=== PATIENT | female | born 1950 | race American Indian/Alaskan Native ===

== ENCOUNTER 2017-06-20 12:02 | Emergency (ER) | payer MEDICARE ==
[2017-06-20 12:43] LABS: Hematocrit 42.3 % (30.3-42.9); Hemoglobin 13.3 gm/dl (10.1-14.3); Mean Corpuscular HGB Conc 32 % (30-34); Mean Corpuscular Hemoglobin 27 pg (28-32); Mean Corpuscular Volume 85 fl (79-97); Platelet Count 249 K/mm3 (140-440); Red Cell Distribution Width 14.1 % (13.2-15.2); White Blood Count 9.4 K/mm3 (4.5-11.0)
[2017-06-20 12:59] LABS: Anion Gap 17 mmol/L; BUN/Creatinine Ratio 13; Blood Urea Nitrogen 8 mg/dL (7-17); Calcium 9.2 mg/dL (8.4-10.2); Carbon Dioxide 28 mmol/L (22-30); Chloride 103.4 mmol/L (98-107); Glucose 92 mg/dL (65-100); Potassium 4.3 mmol/L (3.6-5.0); Sodium 144 mmol/L (137-145)
--- NOTE | 2017-06-20 13:36 | XRay Report ---
ROUTINE CHEST, TWO VIEWS: HISTORY: Cough. Borderline to mild cardiomegaly is unchanged since 06/06/17. The trachea, mediastinal contour, lung renee and bony thorax are unremarkable. IMPRESSION: No acute cardiopulmonary process is appreciated.
--- NOTE | 2017-06-20 17:41 | Emergency Department Report ---
HPI - General Chief Complaint: Laceration/Recheck/Suture Time Seen by Provider: 06/20/17 17:23 - HPI HPI: Muniz 19 The patient is a 67-year-old female presenting with a chief complaint of abdominal pain. Patient had a laparoscopic repair of epigastric hernia performed by Dr. Dunbar 06/07/2017. The patient states she never made her follow-up appointment secondary to lack of transportation. The patient states since the surgery she has had pain in her right lower quadrant ventral region and right back. Patient admits to nausea but denies vomiting. Patient denies any history of fever or diarrhea. Patient states she's had a cough for the past 1.5 weeks. Patient denies any other pain elsewhere. The patient gives her pain a score of 8/10 Location: Abdomen Duration: Constant since 06/07/2017 Quality: Pain Severity: 8/10 Modifying factors: [see above] Context: [see above] Mode of transportation: [not driving] ED Past Medical Hx - Past Medical History Hx Hypertension: Yes Hx Diabetes: Yes - Surgical History Additional Surgical History: Laparoscopic herniorrhaphy - Family History Family history: no significant - Social History Smoking Status: Never Smoker Substance Use Type: Alcohol (rarely) - Medications Home Medications: Home Medications Medication Instructions Recorded Confirmed Last Taken Type Amlodipine Besylate [Norvasc] 10 mg PO QDAY 06/06/17 06/06/17 Unknown History Aspirin [Adult Low Dose Aspirin EC] 81 mg PO DAILY 06/06/17 06/06/17 Unknown History Hydrochlorothiazide [HCTZ] 25 mg PO QDAY 06/06/17 06/06/17 Unknown History Lisinopril [Prinivil] 10 mg PO QDAY 06/06/17 06/06/17 Unknown History Metoprolol Xl [Metoprolol 100 mg PO QDAY 06/06/17 06/06/17 Unknown History SUCCINATE ER TAB] Simvastatin [Zocor] 20 mg PO QDAY 06/06/17 06/06/17 Unknown History metFORMIN [Glucophage] 500 mg PO QDAY 06/06/17 06/06/17 Unknown History HYDROcodone/ACETAMINOPHEN [Vicodin 1 tab PO Q6HR PRN #20 tablet 06/07/17 Unknown Rx HP 10-300 mg TAB] HYDROcodone/APAP 5-325 [Bruneau 1 each PO Q6HR PRN #24 tablet 06/07/17 Unknown Rx 5/325] HYDROcodone/APAP 5-325 [[place] 1 each PO Q6HR PRN #24 tablet 06/07/17 Unknown Rx 5/325] HYDROcodone/APAP 5-325 [[place] 1 each PO Q6HR PRN #24 tablet 06/07/17 Unknown Rx 5/325] HYDROcodone/APAP 5-325 [[place] 1 each PO Q6HR PRN #24 tablet 06/07/17 Unknown Rx 5/325] HYDROcodone/APAP 5-325 [[place] 1 each PO Q6HR PRN #24 tablet 06/07/17 Unknown Rx 5/325] Benzonatate [Tessalon Perle] 100 mg PO TID PRN #30 capsule 06/20/17 Unknown Rx HYDROcodone/APAP 5-325 [[place] 1 - 2 each PO Q6HR PRN #14 tablet 06/20/17 Unknown Rx 5/325] ED Review of Systems ROS: Stated complaint: REMOVAL OF SUTURE Other details as noted in HPI Constitutional: denies: fever Eyes: denies: eye pain Respiratory: cough Cardiovascular: denies: chest pain Gastrointestinal: abdominal pain, nausea. denies: vomiting, diarrhea Genitourinary: denies: dysuria Musculoskeletal: back pain Neurological: denies: headache Physical Exam - Physical Exam Vital Signs: Vital Signs 06/20/17 06/20/17 06/20/17 12:22 16:26 16:27 Temperature 98.1 F Pulse Rate 89 97 H Respiratory 18 18 Rate Blood Pressure 187/93 170/107 O2 Sat by Pulse 96 96 Oximetry Physical Exam: GENERAL: The patient is well-developed well-nourished female lying on stretcher not appearing to be in acute distress. [] HEENT: Normocephalic. Atraumatic. Extraocular motions are intact. Patient has moist mucous membranes. NECK: Supple. Trachea midline CHEST/LUNGS: Clear to auscultation. There is no respiratory distress noted. HEART/CARDIOVASCULAR: Regular. There is no tachycardia. There is no gallop rub or murmur. ABDOMEN: Abdomen is soft, with appropriate postop tenderness. Left scalp surgical sites are clean dry and intact without evidence of discharge or erythema. Patient has normal bowel sounds. There is no abdominal distention. SKIN: There is no rash. There is no edema. There is no diaphoresis. NEURO: The patient is awake, alert, and oriented. The patient is cooperative. The patient has normal speech MUSCULOSKELETAL: There is no evidence of acute injury. ED Course Vital Signs 06/20/17 06/20/17 06/20/17 12:22 16:26 16:27 Temperature 98.1 F Pulse Rate 89 97 H Respiratory 18 18 Rate Blood Pressure 187/93 170/107 O2 Sat by Pulse 96 96 Oximetry - Consultations Consultation #1: 06/20/17 17:46 Dr. Dunbar paged 06/20/17 17:[address] Dunbar ED Medical Decision Making - Lab Data Result diagrams: 06/20/17 12:28 06/20/17 12:28 Laboratory Tests 06/20/17 06/20/17 06/20/17 12:28 12:28 18:15 WBC 9.4 RBC 5.00 Hgb 13.3 Hct 42.3 MCV 85 MCH 27 L MCHC 32 RDW 14.1 Plt Count 249 Sodium 144 Potassium 4.3 Chloride 103.4 Carbon Dioxide 28 Anion Gap 17 BUN 8 Creatinine 0.6 L Estimated GFR > 60 BUN/Creatinine Ratio 13 Glucose 92 Calcium 9.2 Urine Color Straw Urine Turbidity Clear Urine pH 8.0 H Ur Specific [place] 1.006 Urine Protein <15 mg/dl Urine Glucose (UA) Neg Urine Ketones Neg Urine Blood Neg Urine Nitrite Neg Urine Bilirubin Neg Urine Urobilinogen < 2.0 Ur Leukocyte Esterase Lg Urine WBC (Auto) 6.0 Urine RBC (Auto) 3.0 U Epithel Cells (Auto) < 1.0 - Radiology Data Radiology results: report reviewed (CT abdomen and pelvis), image reviewed ( chest x-ray, CT abdomen and pelvis) interpreted by me: Chest x-ray-no focal infiltrates, no pneumothorax FINAL REPORT EXAM: CT ABDOMEN PELVIS W CON HISTORY: lower abd pain, right flank pain TECHNIQUE: CT of the abdomen and pelvis was performed after the administration of intravenous contrast. Subsequently, CT of the abdomen and pelvis was performed in the delayed phase. Reconstructions were included in the coronal and sagittal planes. PRIORS: None. FINDINGS: Lower thorax: The lung bases are clear. Coronary artery calcifications are seen. Liver: The liver is normal in attenuation. No intrahepatic biliary duct dilation. No focal hepatic lesions. Gallbladder/ biliary system: No cholelithiasis. The common bile duct appears nondilated. Spleen: No splenic lesions are seen. Pancreas: No pancreatic lesions are seen. No pancreatic duct dilation. Kidneys: No renal masses, cysts or hydronephrosis. Adrenal glands: No adrenal masses. Vasculature: The abdominal and pelvic vasculature is patent without variant anatomy. Atherosclerotic calcifications are seen in the abdominal aorta. Lymph nodes: No enlarged lymph nodes are seen in the abdomen or pelvis. Bowel, mesentery, peritoneum: No bowel obstruction. No free fluid or free air. The appendix is normal. Colonic diverticulosis is seen. No diverticulitis. No bowel wall thickening. Urinary bladder: No filling defects are seen. Pelvis: 1.8 centimeter cyst is seen in the right adnexa, likely representing an ovarian cyst. The uterus and left ovary appear unremarkable. Abdominal wall: Evidence of prior anterior abdominal wall hernia repair is noted. Small fat containing umbilical hernia is seen. Bones: Mild degenerative changes are seen in the spine. IMPRESSION: 1. No acute intra-abdominal or intrapelvic process. 2. Small cyst in the right adnexa most likely represents a small ovarian cyst. Recommend further evaluation with pelvic ultrasound. 3. Colonic diverticulosis without evidence of diverticulitis. Transcribed By: MG Dictated By: REYNOLD REEVES MD Electronically Authenticated By: REYNOLD REEVES MD Signed Date/Time: 06/20/171454 DD/ 54 TD/TT: 06/20/171454 - Differential Diagnosis postop infection, postop pain Critical care attestation.: If time is entered above; I have spent that time in minutes in the direct care of this critically ill patient, excluding procedure time. ED Disposition Clinical Impression: Postoperative abdominal pain, Cough Disposition: - TO HOME OR SELFCARE Is pt being admited?: No Does the pt Need Aspirin: No Condition: Stable Additional Instructions: Return to the emergency department immediately should you develop worsening symptoms, fever, inability to tolerate food or liquid or any other concerns. Prescriptions: Benzonatate [Tessalon Perle] 100 mg PO TID PRN #30 capsule PRN Reason: Cough HYDROcodone/APAP 5-325 [[place] 5/325] 1 - 2 each PO Q6HR PRN #14 tablet PRN Reason: Pain Referrals: PRIMARY CARE, [Primary Care Provider] - 3-5 Days EMILI DUNBAR MD [Staff Physician] - [facility] Time of Disposition: 19:12
[2017-06-20] MEDS ORDERED: ZOFRAN IV ONE (17:43)
[2017-06-20] MEDS ORDERED: MORPHINE IV ONE (17:43)
[2017-06-20] MEDS ORDERED: MORPHINE ONE (18:01)
[2017-06-20 18:56] LABS: Bilirubin,Urine NEG (Negative); Blood,Urine NEG (Negative); Ketones,Urine NEG (Negative); Leukocyte Esterase,Urine LG (Negative); Nitrite,Urine NEG (Negative); Protein,Urine <15 mg/dL mg/dL (Negative); Urobilinogen,Urine < 2.0 mg/dL (<2.0)
--- NOTE | 2017-06-20 18:59 | Cat Scan Report ---
FINAL REPORT EXAM: CT ABDOMEN PELVIS W CON HISTORY: lower abd pain, right flank pain TECHNIQUE: CT of the abdomen and pelvis was performed after the administration of intravenous contrast. Subsequently, CT of the abdomen and pelvis was performed in the delayed phase. Reconstructions were included in the coronal and sagittal planes. PRIORS: None. FINDINGS: Lower thorax: The lung bases are clear. Coronary artery calcifications are seen. Liver: The liver is normal in attenuation. No intrahepatic biliary duct dilation. No focal hepatic lesions. Gallbladder/ biliary system: No cholelithiasis. The common bile duct appears nondilated. Spleen: No splenic lesions are seen. Pancreas: No pancreatic lesions are seen. No pancreatic duct dilation. Kidneys: No renal masses, cysts or hydronephrosis. Adrenal glands: No adrenal masses. Vasculature: The abdominal and pelvic vasculature is patent without variant anatomy. Atherosclerotic calcifications are seen in the abdominal aorta. Lymph nodes: No enlarged lymph nodes are seen in the abdomen or pelvis. Bowel, mesentery, peritoneum: No bowel obstruction. No free fluid or free air. The appendix is normal. Colonic diverticulosis is seen. No diverticulitis. No bowel wall thickening. Urinary bladder: No filling defects are seen. Pelvis: 1.8 centimeter cyst is seen in the right adnexa, likely representing an ovarian cyst. The uterus and left ovary appear unremarkable. Abdominal wall: Evidence of prior anterior abdominal wall hernia repair is noted. Small fat containing umbilical hernia is seen. Bones: Mild degenerative changes are seen in the spine. IMPRESSION: 1. No acute intra-abdominal or intrapelvic process. 2. Small cyst in the right adnexa most likely represents a small ovarian cyst. Recommend further evaluation with pelvic ultrasound. 3. Colonic diverticulosis without evidence of diverticulitis.
[2017-06-20 20:06] VITALS: BP 163/98
[2017-06-20] MEDS ORDERED: TYLENOL PO ONE (20:09)
[2017-06-20] MEDS ORDERED: TYLENOL ONE (20:12)
== END 2017-06-20 20:33 | disposition home or self-care (01) ==
LOC: ED 12:02
DX: G89.18 Other acute postprocedural pain (principal); R10.31 Right lower quadrant pain; R05 Cough; I10 Essential (primary) hypertension; E11.9 Type 2 diabetes mellitus without complications; Z79.82 Long term (current) use of aspirin
CPT/HCPCS: 36415; 71020; 74177; 80048; 81001; 85027; 96374; 96375; 99285; J2270; J2405; Q9967

== ENCOUNTER 2018-09-10 06:07 | Day surgery (SDC) | payer MEDICARE ==
[2018-09-10] MEDS ORDERED: ECOTRIN PO NR (06:20)
[2018-09-10] MEDS ORDERED: NACL 0.9% 500 ML 500 ML IV SCH (07:00)
[2018-09-10 07:10] LABS: Basophils % (Auto) 0.3 % (0.0-1.8); Eosinophils # (Auto) 0.8 K/mm3 (0.0-0.4); Eosinophils % (Auto) 9.4 % (0.0-4.3); Hematocrit 43.8 % (30.3-42.9); Hemoglobin 14.4 gm/dl (10.1-14.3); Lymphocytes # (Auto) 2.2 K/mm3 (1.2-5.4); Lymphocytes % (Auto) 24.8 % (13.4-35.0); Mean Corpuscular HGB Conc 33 % (30-34); Mean Corpuscular Volume 83 fl (79-97); Monocytes # (Auto) 0.7 K/mm3 (0.0-0.8); Monocytes % (Auto) 8.3 % (0.0-7.3); Platelet Count 237 K/mm3 (140-440); Red Blood Count 5.29 M/mm3 (3.65-5.03)
[2018-09-10 07:21] LABS: INR 1.06 (0.87-1.13)
[2018-09-10 07:22] LABS: BUN/Creatinine Ratio 15; Blood Urea Nitrogen 9 mg/dL (7-17); Calcium 9.3 mg/dL (8.4-10.2); Hemolysis Index 120; Partial Thromboplastin Time 25.2 Sec. (24.2-36.6)
[2018-09-10] MEDS ORDERED: HEPARIN/NS 5000 UNIT/500ML(CATH LAB) 1,000 ML IR ONE (09:18)
[2018-09-10] MEDS: NITROGLYCERIN SYRINGE 3 ML ONE ×2 (09:22→10:07)
[2018-09-10] MEDS: VERSED ONE ×2 (09:50→09:58)
[2018-09-10] MEDS: SUBLIMAZE ONE ×2 (09:51→09:58)
[2018-09-10] MEDS: XYLOCAINE 2% INFILTRATI ONE ×2 (09:51→10:05)
[2018-09-10] MEDS: CALAN ONE ×2 (09:51→10:07)
[2018-09-10] MEDS: HEPARIN 10,000 UNITS/10 ML ONE ×2 (09:52→10:07)
--- NOTE | 2018-09-10 10:32 | Discharge Summary ---
Short Stay Discharge Plan Activity: advance as tolerated Weight Bearing Status: Full Weight Bearing Diet: low fat, low cholesterol, low salt Wound: keep clean and dry Special Instructions: no heavy lifting (3 days), hold Metformin (48 hrs) Follow up with: ISAIAH COTE MD [Primary Care Provider] - 7 Days KESHAV MADERA MD [Staff Physician] - 7 Days
--- NOTE | 2018-09-10 10:45 | Cardiac Catherization Report ---
CARDIAC CATHETERIZATION REPORT REASON FOR PROCEDURE: Cardiomyopathy and abnormal thallium stress test. PROCEDURES: 1. Left heart catheterization. 2. Selective left and right coronary angiography. 3. Left ventricle angiography. 4. Sedation time: Start 09:58, end 10:20. DESCRIPTION OF PROCEDURE: The patient was prepped and draped in a sterile fashion after informed consent. The right radial cath site was prepped and draped after a negative Ariel's test. The right radial artery was entered using Seldinger technique followed by placement of a 6-Occitan hydrophilic sheath. Routine radial cocktail was administered via the sheath. Selective left and right coronary angiography was performed using a #3.5 left Clarisa and a #4 right Clarisa. A pigtail catheter was used for left ventricle angiography. Catheters were then removed, sheath removed, and hemostasis achieved using a TR band. The patient was returned to the postprocedure unit in stable condition. There were no complications. FINDINGS: HEMODYNAMICS: Left ventricle end-diastolic pressure was 25, following coronary angiography. Ascending aortic pressure was 141/78. There was no significant pressure gradient on pullback across the aortic valve. CORONARY ANGIOGRAPHY: There was diffuse, moderate to severe ectasia involving the left main, left anterior descending, circumflex arteries and their branches. This severe ectasia was associated with diffuse mild atherosclerotic disease. There was also mild diffuse coronary calcification, chiefly involving the mid segments of the left anterior descending artery. No severe obstructive lesions were noted in the left coronary system. The right coronary artery was dominant. This vessel also contained diffuse moderate ectasia associated with diffuse mild atherosclerosis. The left ventricle was moderately to severely dilated. There was severe left ventricular systolic dysfunction with diffuse hypokinesis. Left ventricular ejection fraction less than 20%. CONCLUSION: 1. 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 2. Dilated, nonischemic cardiomyopathy, severe left ventricular systolic dysfunction, ejection fraction less than 20%. RECOMMENDATION: Medical therapy and risk factor modification. [facility]# [id number] [place]/NTS
[2018-09-10] MEDS ORDERED: NACL 0.9% 1000 ML 1,000 ML IV SCH (11:00)
[2018-09-10 14:08] VITALS: BP 140/90
== END 2018-09-10 15:30 | disposition home or self-care (01) ==
LOC: CATHLABREC 06:07
PROVIDERS: ATTEND Internal Medicine Cardiovascular Disease
DX: I25.10 Atherosclerotic heart disease of native coronary artery without angina pectoris (principal); I42.0 Dilated cardiomyopathy; R94.39 Abnormal result of other cardiovascular function study; I77.819 Aortic ectasia, unspecified site; I44.7 Left bundle-branch block, unspecified; E78.00 Pure hypercholesterolemia, unspecified; I10 Essential (primary) hypertension; Z79.82 Long term (current) use of aspirin; Z79.01 Long term (current) use of anticoagulants; Z98.890 Other specified postprocedural states
CPT/HCPCS: 36415; 80048; 85025; 85610; 85730; 93005; 93010; 93458; 99156; C1894; J1644; J2250; J3010; J7040; Q9967

== ENCOUNTER 2018-09-16 09:58 | Emergency (ER) | payer MEDICARE ==
[2018-09-16 10:08] VITALS: BP 174/102
--- NOTE | 2018-09-16 11:08 | Emergency Department Report ---
ED General Adult HPI - General Chief complaint: Extremity Injury, Upper Stated complaint: ARM PAIN Time Seen by Provider: 09/16/18 10:50 Source: patient Mode of arrival: Ambulatory Limitations: No Limitations - History of Present Illness Initial comments: Patient is a 68-year-old female who is presenting with some right wrist discomfort. Patient had a cardiac cath last week, approximately 6 days ago. Patient states that to 3 days ago she started having some mild bruising and achiness in this area. Patient states on her paperwork is stated that she should be seen if she has any discoloration. Patient denies any discharge comfort with moving her wrist, fevers chills nausea vomiting or diarrhea. Severity scale (0 -10): 7 - Related Data Home Medications Medication Instructions Recorded Confirmed Last Taken Aspirin [Aspirin EC] 81 mg PO QDAY 09/10/18 09/10/18 09/09/18 Previous Rx's Medication Instructions Recorded Last Taken Type amLODIPine [Norvasc] 10 mg PO QDAY #30 tablet 04/01/18 09/09/18 Rx Allergies Allergy/AdvReac Type Severity Reaction Status Date / Time No Known Allergies Allergy Verified 09/16/18 10:05 ED Review of Systems ROS: Stated complaint: ARM PAIN Other details as noted in HPI Comment: All other systems reviewed and negative ED Past Medical Hx - Past Medical History Hx Hypertension: Yes Hx Diabetes: Yes Hx Headaches / Migraines: Yes (for the last 3 days) - Surgical History Additional Surgical History: Laparoscopic herniorrhaphy - Social History Smoking Status: Never Smoker Substance Use Type: None - Medications Home Medications: Home Medications Medication Instructions Recorded Confirmed Last Taken Type amLODIPine [Norvasc] 10 mg PO QDAY #30 tablet 04/01/18 09/10/18 09/09/18 Rx Aspirin [Aspirin EC] 81 mg PO QDAY 09/10/18 09/10/18 09/09/18 History ED Physical Exam - General Limitations: No Limitations General appearance: alert, in no apparent distress - Head Head exam: Present: atraumatic, normocephalic - Eye Eye exam: Present: normal appearance - ENT ENT exam: Present: mucous membranes moist - Neck Neck exam: Present: normal inspection - Respiratory Respiratory exam: Present: normal lung sounds bilaterally. Absent: respiratory distress, wheezes, rales, rhonchi - Cardiovascular Cardiovascular Exam: Present: regular rate, normal rhythm. Absent: systolic murmur, diastolic murmur, rubs, gallop - GI/Abdominal GI/Abdominal exam: Present: soft, normal bowel sounds. Absent: distended, tenderness, guarding, rebound - Extremities Exam Extremities exam: Present: normal inspection, other (the volar surface of the right wrist shows a small area of bruising. There is no induration or fluctuance of the skin. There is no warmth. Very minimal tenderness palpation. Patient has full range of motion to the right wrist.) - Back Exam Back exam: Present: normal inspection - Neurological Exam Neurological exam: Present: alert, oriented X3 - Psychiatric Psychiatric exam: Present: normal affect, normal mood - Skin Skin exam: Present: warm, dry, intact, normal color. Absent: rash ED Course Vital Signs 09/16/18 10:05 Temperature 98.3 F Pulse Rate 110 H Respiratory 18 Rate Blood Pressure 174/102 O2 Sat by Pulse 98 Oximetry ED Medical Decision Making - Medical Decision Making Patient likely had a small amount of blood underneath the surface of the scan after the venipuncture. Patient does not appear to have a large hematoma and skin there is just some surface bruising. Patient's discharge home to follow with her dry plasterer. Critical care attestation.: If time is entered above; I have spent that time in minutes in the direct care of this critically ill patient, excluding procedure time. ED Disposition Clinical Impression: Wrist contusion Qualifiers: Encounter type: initial encounter Laterality: right Qualified Code(s): S60.211A - Contusion of right wrist, initial encounter Disposition: -01 TO HOME OR SELFCARE Is pt being admited?: No Does the pt Need Aspirin: No Condition: Stable Instructions: Contusion in Adults (ED) Time of Disposition: 11:08
== END 2018-09-16 11:41 | disposition home or self-care (01) ==
LOC: ED 09:58
DX: S60.211A Contusion of right wrist, initial encounter (principal); I10 Essential (primary) hypertension; E11.9 Type 2 diabetes mellitus without complications; G43.909 Migraine, unspecified, not intractable, without status migrainosus; Z79.82 Long term (current) use of aspirin; X58.XXXA Exposure to other specified factors, initial encounter; Y93.89 Activity, other specified; Y92.89 Other specified places as the place of occurrence of the external cause; Y99.8 Other external cause status
CPT/HCPCS: 99282

== ENCOUNTER 2018-10-21 11:47 | Inpatient (IN) | payer MEDICARE ==
--- NOTE | 2018-10-21 12:36 | Emergency Department Report ---
ED General Adult HPI - General Chief complaint: Dyspnea/Respdistress Stated complaint: FABIÁN Time Seen by Provider: 10/21/18 12:32 Source: patient, EMS (ems notes not available at time of chart dictation), RN notes reviewed, old records reviewed Mode of arrival: Ambulatory Limitations: No Limitations - History of Present Illness Initial comments: Primary care Dr.: Dr. 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 The patient is not known to this provider previously. The patient is sent to the emergency room by her clutch inspector for "fluid on my lungs." The patient today complains of cough, wheezing, shortness of breath, inability to expectorate, unintentional 45 pound weight gain, generalized malaise and fatigue. Symptoms present for the past 2 weeks. They're getting worse. She sleeps on 2 pillows constantly. She denies DVT, pulmonary embolus risk factors. She reports 3 days of constant chest wall pain, which has started after coughing. Her symptoms worsen physical exertion, laying down, and decreased with rest. They do not radiate anywhere. The chest wall pain is constant. It does not radiate anywhere. -: Gradual, days(s) Location: chest Radiation: non-radiation Consistency: constant Improves with: other Worsens with: other - Related Data Home Medications Medication Instructions Recorded Confirmed Last Taken Aspirin [Aspirin EC] 81 mg PO QDAY 09/10/18 10/21/18 10/20/18 metFORMIN [Glucophage] 500 mg PO QDAY 10/21/18 10/21/18 10/20/18 Previous Rx's Medication Instructions Recorded Last Taken Type amLODIPine [Norvasc] 10 mg PO QDAY #30 tablet 04/01/18 10/20/18 Rx Allergies Allergy/AdvReac Type Severity Reaction Status Date / Time No Known Allergies Allergy Verified 09/16/18 10:05 ED Review of Systems ROS: Stated complaint: FABIÁN Other details as noted in HPI Constitutional: malaise, weakness. denies: fever ENT: congestion Respiratory: cough, shortness of breath, SOB with exertion, SOB at rest, wheezing Cardiovascular: chest pain, dyspnea on exertion. denies: orthopnea, edema Gastrointestinal: denies: abdominal pain, nausea, vomiting Genitourinary: denies: dysuria Musculoskeletal: denies: arthralgia, myalgia Skin: denies: lesions Neurological: weakness Psychiatric: denies: anxiety ED Past Medical Hx - Past Medical History Previous Medical History?: Yes Hx Hypertension: Yes Hx CVA: No Hx Heart Attack/AMI: No Hx Congestive Heart Failure: Yes Hx Diabetes: Yes Hx Deep Vein Thrombosis: No Hx Pulmonary Embolism: No Hx GERD: No Hx Liver Disease: No Hx Renal Disease: No Hx of Cancer: No Hx Sickle Cell Disease: No Hx Arthritis: No Hx Headaches / Migraines: Yes (for the last 3 days) Hx Seizures: No Hx Kidney Stones: No Hx Psychiatric Treatment: No Hx Asthma: No Hx COPD: No Hx Tuberculosis: No Hx Dementia: No Hx HIV: No - Surgical History Past Surgical History?: Yes Hx Coronary Stent: No Hx Open Heart Surgery: No Hx Pacemaker: No Hx Internal Defibrillator: No Hx Cholecystectomy: No Hx Appendectomy: No Hx Breast Surgery: No Additional Surgical History: Laparoscopic herniorrhaphy - Social History Smoking Status: Never Smoker Substance Use Type: None - Medications Home Medications: Home Medications Medication Instructions Recorded Confirmed Last Taken Type amLODIPine [Norvasc] 10 mg PO QDAY #30 tablet 04/01/18 10/21/18 10/20/18 Rx Aspirin [Aspirin EC] 81 mg PO QDAY 09/10/18 10/21/18 10/20/18 History metFORMIN [Glucophage] 500 mg PO QDAY 10/21/18 10/21/18 10/20/18 History ED Physical Exam - General Limitations: No Limitations General appearance: alert, in no apparent distress - Head Head exam: Present: atraumatic, normocephalic - Eye Eye exam: Present: normal appearance, EOMI. Absent: nystagmus - ENT ENT exam: Present: normal exam, normal orophraynx, mucous membranes moist, normal external ear exam - Neck Neck exam: Present: normal inspection, full ROM. Absent: tenderness, meningismus - Respiratory Respiratory exam: Present: respiratory distress, wheezes, rales, rhonchi - Cardiovascular Cardiovascular Exam: Present: regular rate, normal rhythm, normal heart sounds. Absent: tachycardia, irregular rhythm, systolic murmur, diastolic murmur, rubs, gallop - GI/Abdominal GI/Abdominal exam: Present: soft. Absent: distended, tenderness, guarding, rebound, rigid, pulsatile mass - Extremities Exam Extremities exam: Present: normal inspection, full ROM, other (2+ pulses noted in the bilateral upper, lower extremities. Compartments soft. No long bony tenderness. The pelvis is stable.). Absent: pedal edema, joint swelling, calf tenderness - Back Exam Back exam: Present: normal inspection, full ROM. Absent: paraspinal tenderness, vertebral tenderness - Neurological Exam Neurological exam: Present: alert, oriented X3, CN II-XII intact, normal gait, other (Extraocular movements intact. Tongue midline. No facial droop. Facial sensation intact to light touch in the V1, V2, V3 distribution bilaterally. 5 and 5 strength in 4 extremities.. Sensation is intact to light touch in 4 extremities.). Absent: motor sensory deficit - Psychiatric Psychiatric exam: Present: normal affect, normal mood - Skin Skin exam: Present: warm, dry, intact, normal color. Absent: rash ED Course Vital Signs 10/21/18 10/21/18 11:58 14:26 Temperature 98.2 F Pulse Rate 80 Respiratory 18 18 Rate Blood Pressure 157/100 O2 Sat by Pulse 96 99 Oximetry - Reevaluation(s) Reevaluation #1: 10/21/18 13:54 Differential diagnosis, including but not limited to: COPD exacerbation, bronchitis, CHF exacerbation, pulmonary hypertension, costochondritis, pneumonia, acute coronary syndrome Assessment and plan: 68-year-old female with known history of catheterization proven resumed nonischemic dilated cardiomyopathy, with cough, wheezing, shortness of breath, unintentional weight loss, and chest wall pain. Suspect fluid overload, possible superimposed bronchitis, COPD. Reports no pulmonary embolus or DVT risk factors, and I find the patient to be low risk by well's criteria. Cardiology has been paged. EKG, troponin pending. We will admit the patient to the medical service. Patient will be treated with bronchodilators, steroids, and diuretics. 10/21/18 13:55 Reevaluation #2: 10/21/18 14:38 Dr. Serna has accepted the patient to the medical service. Reevaluation #3: 10/21/18 15:23 X-ray of the chest interpreted as negative for acute disease. Reevaluation #4: 10/21/18 15:44 Discussed with clutch inspector visualization developer, Dr. Lolis Caban , who agrees with plan, and he will follow-up consultation. ED Medical Decision Making - Lab Data Result diagrams: 10/21/18 12:52 10/21/18 12:52 Vital Signs 10/21/18 11:58 Temperature 98.2 F Pulse Rate 80 Respiratory 18 Rate Blood Pressure 157/100 O2 Sat by Pulse 96 Oximetry Lab Results 10/21/18 10/21/18 10/21/18 Range/Units 12:52 12:52 12:52 WBC 8.8 (4.5-11.0) K/mm3 RBC 5.47 H (3.65-5.03) M/mm3 Hgb 15.0 H (10.1-14.3) gm/dl Hct 45.2 H (30.3-42.9) % MCV 83 (79-97) fl MCH 28 (28-32) pg MCHC 33 (30-34) % RDW 14.5 (13.2-15.2) % Plt Count 283 (140-440) K/mm3 PT 13.9 (12.2-14.9) Sec. INR 1.01 (0.87-1.13) Sodium 141 (137-145) mmol/L Potassium 4.1 (3.6-5.0) mmol/L Chloride 99.9 (98-107) mmol/L Carbon Dioxide 29 (22-30) mmol/L Anion Gap 16 mmol/L BUN 10 (7-17) mg/dL Creatinine 0.7 (0.7-1.2) mg/dL Estimated GFR > 60 ml/min BUN/Creatinine Ratio 14 % Glucose 111 H (65-100) mg/dL Calcium 9.9 (8.4-10.2) mg/dL Magnesium 2.00 (1.7-2.3) mg/dL Troponin T < 0.010 (0.00-0.029) ng/mL NT-Pro-B Natriuret Pep 551.5 (0-900) pg/mL - EKG Data -: EKG Interpreted by Me - EKG Data 10/21/18 15:46 EKG shows a sinus rhythm, 96 bpm, left axis deviation, left bundle branch block, left anterior fascicular block, not having chest pain, abnormal EKG, unchanged from prior, this EKG is not morphologically consistent with ST elevation myocardial infarction. - Radiology Data Radiology results: pending Critical care attestation.: If time is entered above; I have spent that time in minutes in the direct care of this critically ill patient, excluding procedure time. ED Disposition Clinical Impression: SOB (shortness of breath), Cardiomyopathy, Chest pain, Bronchitis Disposition: OP ADMIT IP TO THIS HOSP Is pt being admited?: Yes Does the pt Need Aspirin: Yes Condition: Stable
[2018-10-21] MEDS ORDERED: SOLU-Medrol IV ONE (13:01)
[2018-10-21] MEDS ORDERED: PROVENTIL IH ONE (13:01)
[2018-10-21] MEDS ORDERED: ATROVENT IH ONE (13:01)
[2018-10-21 13:10] LABS: Hematocrit 45.2 % (30.3-42.9); Mean Corpuscular HGB Conc 33 % (30-34); Mean Corpuscular Volume 83 fl (79-97); Platelet Count 283 K/mm3 (140-440); Red Blood Count 5.47 M/mm3 (3.65-5.03); Red Cell Distribution Width 14.5 % (13.2-15.2)
[2018-10-21 13:19] LABS: INR 1.01 (0.87-1.13)
[2018-10-21 13:39] LABS: BUN/Creatinine Ratio 14; Blood Urea Nitrogen 10 mg/dL (7-17); Calcium 9.9 mg/dL (8.4-10.2); Hemolysis Index 4
[2018-10-21] MEDS ORDERED: LASIX IV ONE (13:49)
[2018-10-21] MEDS ORDERED: TYLENOL PO ONE (13:55)
[2018-10-21] MEDS ORDERED: BABY ASPIRIN PO ONE (13:56)
--- NOTE | 2018-10-21 14:30 | History and Physical Report ---
History of Present Illness Chief complaint: i cant breathe doc History of present illness: 68 YO Female with HTN, DM, Obesity, Systolic CHF(EF 20%), COPD presents to ED for evaluation. Pt states that she has experienced shortness of breath over the past 3 days with progressively worsening symptoms over the same time frame. Pt acknowledges shortness of breath, increased productive cough of whitish sputum, dypsnea on exertion, decreased exercise tolerance, leg edema, and 45 lbs weight gain over the past 2 months, Orthopnea/PND. PT denies fever, chills, chest pain, palpitation, nasal congestion, or sore throat, NVD, Dizziness, syncope or loss of consciousness. EMS notified, and upon arrival the patient was found to be in distress and transported to [facility]. Pt seen and evaluated in ED and found to have symptoms consistent with COPD Exacebation complicated by Acute Respiratory Failure, as well as CHF Decompensation. Cardiology consulted in ED. Pt admitted to telemetry and initiated on CHF protocol. Pt treated with supplemental oxygen with improvement in symptoms. Prior admission on 03/28/18 reviewed. All listed medication reconciled at admission. Primary care Dr.: Dr. Elian Parker Cardiology: [facility] Past History Past Medical History: CAD, COPD, diabetes, heart failure, hypertension Past Surgical History: Other (cardiac cath) Social history: single, lives with family. denies: smoking, alcohol abuse, prescription drug abuse Family history: diabetes, hypertension Medications and Allergies Allergies Allergy/AdvReac Type Severity Reaction Status Date / Time No Known Allergies Allergy Verified 09/16/18 10:05 Home Medications Medication Instructions Recorded Confirmed Last Taken Type amLODIPine [Norvasc] 10 mg PO QDAY #30 tablet 04/01/18 10/21/18 10/20/18 Rx Aspirin [Aspirin EC] 81 mg PO QDAY 09/10/18 10/21/18 10/20/18 History metFORMIN [Glucophage] 500 mg PO QDAY 10/21/18 10/21/18 10/20/18 History Review of Systems Constitutional: weight gain, no weight loss, no fever, no chills, no sweats Ears, nose, mouth and throat: no ear pain, no ear discharge, no tinnitis, no decreased hearing, no nose pain, no nasal congestion Breasts: no change in shape, no swelling, no mass Cardiovascular: orthopnea, shortness of breath, dyspnea on exertion, paroxysmal nocturnal dyspnea, decreased exercise tolerance, no chest pain, no palpitations Respiratory: cough, cough with sputum, excessive sputum, shortness of breath Gastrointestinal: no nausea, no vomiting, no diarrhea, no constipation Genitourinary Female: no pelvic pain, no flank pain, no menorrhagia, no dysuria, no urinary frequency, no urgency Menstruation: no premenarcheal, no post hysterectomy, no ammenorrhea Rectal: no pain, no incontinence, no bleeding Musculoskeletal: no neck stiffness, no neck pain, no shooting arm pain, no arm numbness/tingling, no low back pain, no shooting leg pain Integumentary: no rash, no pruritis, no redness, no sores, no wounds Neurological: no transient paralysis, no paralysis, no weakness, no parathesias, no numbness, no tingling Psychiatric: no anxiety, no memory loss, no change in sleep habits, no sleep disturbances, no insomnia Endocrine: no cold intolerance, no heat intolerance, no polyphagia, no polydipsia, no polyuria, no nocturia, no excessive sweating Hematologic/Lymphatic: no easy bruising, no easy bleeding, no lymphedema Allergic/Immunologic: no urticaria, no allergic rhinitis, no wheezing Exam - Constitutional Vitals: Temp Pulse Resp BP Pulse Ox 98.2 F 80 18 157/100 99 10/21/18 11:58 10/21/18 11:58 10/21/18 14:26 10/21/18 11:58 10/21/18 14:26 General appearance: Present: mild distress - EENT Eyes: Present: PERRL ENT: hearing intact, clear oral mucosa - Neck Neck: Present: supple, normal ROM - Respiratory Respiratory effort: normal Respiratory: bilateral: diminished, rhonchi - Cardiovascular Heart Sounds: Present: S1 & S2. Absent: rub, click - Extremities Extremities: pulses symmetrical Extremity abnormal: edema Peripheral Pulses: within normal limits - Abdominal General gastrointestinal: Present: soft, non-tender, non-distended, normal bowel sounds Female genitourinary: Present: normal - Integumentary Integumentary: Present: clear, warm, dry - Musculoskeletal Musculoskeletal: gait normal, strength equal bilaterally - Psychiatric Psychiatric: appropriate mood/affect, intact judgment & insight - Neurologic Neurologic: CNII-XII intact, moves all extremities Results - Labs CBC & Chem 7: 10/21/18 12:52 10/21/18 12:52 Labs: Abnormal lab results 10/21/18 10/21/18 Range/Units 12:52 12:52 RBC 5.47 H (3.65-5.03) M/mm3 Hgb 15.0 H (10.1-14.3) gm/dl Hct 45.2 H (30.3-42.9) % Glucose 111 H (65-100) mg/dL Assessment and Plan - Patient Problems (1) CHF (congestive heart failure) Current Visit: Yes Status: Acute Qualifiers: Heart failure type: systolic Heart failure chronicity: acute on chronic Qualified Code(s): I50.23 - Acute on chronic systolic (congestive) heart failure Plan to address problem: Admit to telemetry, Cath report reviewed, strict I/O, daily weight, BNP, monitor uop q shift, chest x ray, afterload reduction, (2) COPD with exacerbation Current Visit: Yes Status: Acute Plan to address problem: Admit to telemetry, supplemental oxygen, nebulizer therapy, NIPPV as clinically indicated, IV steroid therapy, empiric antibiotic therapy, pulse oximetry, D dimer, CTA chest, Influenza A/B, Hydromet for cough suppression. (3) Respiratory failure Current Visit: Yes Status: Acute Qualifiers: Chronicity: acute Respiratory failure complication: hypoxia Qualified Code(s): J96.01 - Acute respiratory failure with hypoxia Plan to address problem: Chest x ray, pulse oximetry, CT angio chest, d dimer, supplemental oxygen, NIPPV as clinically indicated, (4) Diabetes Current Visit: Yes Status: Acute Plan to address problem: ADA diet, insulin, accu check, (5) CAD (coronary artery disease) Current Visit: Yes Status: Acute Qualifiers: Associated angina: without angina Plan to address problem: Low cholesterol diet, lipid panel, statin therapy as clinically indicated. (6) DVT prophylaxis Current Visit: Yes Status: Acute Plan to address problem: SCD to BLE while in bed. Prophylactic lovenox
[2018-10-21] MEDS ORDERED: SODIUM CHLORIDE FLUSH SYRINGE 10 ML IV PRN (14:38)
[2018-10-21] MEDS ORDERED: PROVENTIL IH PRN (14:38)
[2018-10-21] MEDS ORDERED: D50W (25GM) Syringe IV PRN (15:00)
[2018-10-21] MEDS ORDERED: ZOFRAN IV PRN (15:00)
[2018-10-21] MEDS ORDERED: TYLENOL PO PRN (15:00)
--- NOTE | 2018-10-21 15:14 | XRay Report ---
Chest 2 views: Compared to 03/28/18. History: Dyspnea. Findings: Borderline cardiomegaly. Trachea is midline. No consolidation, pneumothorax or pleural effusion. Impression: No acute cardiopulmonary findings.
[2018-10-21] MEDS: NORVASC PO SCH (16:44)
[2018-10-21] MEDS ORDERED: HYDROMET PO PRN (17:07)
[2018-10-21] MEDS ORDERED: LASIX ONE (18:59)
[2018-10-21] MEDS: HumaLOG SUB-Q SCH (19:03)
[2018-10-21] MEDS: LASIX IV SCH (19:04)
[2018-10-21] MEDS ORDERED: HumaLOG SUB-Q ONE (19:04)
--- NOTE | 2018-10-21 20:16 | Cat Scan Report ---
PROCEDURE: CT ANGIO CHEST TECHNIQUE: Computerized tomographic angiography of the chest was performed after the IV injection of iodinated nonionic contrast including image processing. The image data was postprocessed using 2-di mensional multiplanar reformatted (MPR) and 3-dimensional (MIP and/or volume rendered) techniques. Au tomated exposure control, adjustment of mA and/or kV according to patient size, or iterative reconstr uction dose optimization techniques were utilized. HISTORY: Dyspnea COMPARISONS: None . FINDINGS: There is an aberrant right subclavian artery. Prominent right thyroid lobe Heart and pericardium: Heart is at the upper limit of normal in size. No pericardial effusion or thic kening. Thoracic aorta: Tortuous thoracic aorta. Pulmonary vasculature: Normal. Lymph nodes: No enlarged thoracic lymph nodes. Lungs: Normal. Pleural space: No effusion, thickening, or pneumothorax. Musculoskeletal structures: No significant abnormality. Upper abdominal structures: No significant abnormality. IMPRESSION: No evidence of pulmonary emboli. Other findings as above . This document is electronically signed by Loly Stinson MD., October 21 2018 08:13:37 PM ET
[2018-10-21] MEDS: LOVENOX SUB-Q SCH (21:42)
[2018-10-21] MEDS: SODIUM CHLORIDE FLUSH SYRINGE 10 ML IV SCH (21:42)
[2018-10-21] MEDS: SOLU-Medrol IV SCH (21:42)
[2018-10-22] MEDS: HumaLOG SUB-Q SCH ×5 (00:41→18:11)
[2018-10-22] MEDS: LASIX IV SCH ×2 (05:38→18:08)
[2018-10-22] MEDS: SOLU-Medrol IV SCH ×2 (09:23→22:45)
[2018-10-22] MEDS: HALFPRIN EC PO SCH (09:23)
[2018-10-22] MEDS: NORVASC PO SCH (09:23)
[2018-10-22] MEDS: SODIUM CHLORIDE FLUSH SYRINGE 10 ML IV SCH ×2 (09:24→22:45)
[2018-10-22] MEDS: ZITHROMAX 500 MG in NACL 0.9% 250ML 250 ML IV SCH (09:46)
[2018-10-22] MEDS ORDERED: AFLURIA QUAD 2018-2019 SYRINGE IM ONE (12:00)
--- NOTE | 2018-10-22 14:33 | Consultation ---
History of Present Illness Consult date: 10/22/18 Consult reason: congestive heart failure History of present illness: Patient is a 68-year-old woman with a dilated nonischemic cardiomyopathy, un derwent a cardiac catheterization 6 weeks ago, no significant coronary disease, left ventricular ejection fraction less than 20%. She has been on medical therapy for her nonischemic cardiomyopathy. During an outpatient follow-up visit with her primary asphalt spreader yesterday, she was referred to the emergency room for further evaluation of shortness of breath. In the emergency room, she was reported as having diffuse rhonchi and wheezing, diagnosed with a bronchitis and COPD exacerbation. The chest x-ray revealed no interstitial edema or heart failure, and there was no lower extremity edema. EKG sent normal sinus rhythm with her chronic left bundle branch block. Today, the patient looks and feels better, no further shortness of breath, no chest pain. She is on intravenous antibiotics. Past History Past Medical History: CAD, COPD, diabetes, heart failure, hypertension Past Surgical History: Other (cardiac cath) Social history: single, lives with family. denies: smoking, alcohol abuse, pres cription drug abuse Family history: diabetes, hypertension Medications and Allergies Allergies Allergy/AdvReac Type Severity Reaction Status Date / Time No Known Allergies Allergy Verified 09/16/18 10:05 Home Medications Medication Instructions Recorded Confirmed Last Taken Type amLODIPine [Norvasc] 10 mg PO QDAY #30 tablet 04/01/18 10/21/18 10/20/18 Rx Aspirin [Aspirin EC] 81 mg PO QDAY 09/10/18 10/21/18 10/20/18 History metFORMIN [Glucophage] 500 mg PO QDAY 10/21/18 10/21/18 10/20/18 History Active Meds: Active Medications Acetaminophen (Tylenol) 650 mg PO Q4H PRN PRN Reason: Pain MILD(1-3)/Fever >100.5/DE [place] Last Admin: 10/22/18 09:26 Dose: 650 mg Documented by: Albuterol (Proventil) 2.5 mg IH Q4HRT PRN PRN Reason: Shortness Of Breath Amlodipine Besylate (Norvasc) 10 mg PO QDAY [facility] Last Admin: 10/22/18 09:23 Dose: 10 mg Documented by: Aspirin (Halfprin Ec) 81 mg PO QDAY [facility] Last Admin: 10/22/18 09:23 Dose: 81 mg Documented by: Dextrose (D50w (25gm) Syringe) 50 ml IV PRN PRN PRN Reason: Hypoglycemia Enoxaparin Sodium (Lovenox) 40 mg SUB-Q QDAY@2200 [facility] Last Admin: 10/21/18 21:42 Dose: 40 mg Documented by: Furosemide (Lasix) 20 mg IV 0600,1800 [facility] Last Admin: 10/22/18 05:38 Dose: 20 mg Documented by: Hydrocodone Bit/Homatropine Methylb (Hydromet) 10 ml PO Q6H PRN PRN Reason: Cough Azithromycin 500 mg/ Sodium (Chloride) 250 mls @ 250 mls/hr IV Q24HR [facility] Last Admin: 10/22/18 09:46 Dose: 250 mls/hr Documented by: Insulin Human Lispro (Humalog) 0 unit SUB-Q Q6HR [facility]; Protocol Last Admin: 10/22/18 13:15 Dose: Not Given Documented by: Methylprednisolone Sodium Succinate (Solu-Medrol) 40 mg IV Q12HR [facility] Last Admin: 10/22/18 09:23 Dose: 40 mg Documented by: Ondansetron HCl (Zofran) 4 mg IV Q8H PRN PRN Reason: Nausea And Vomiting Sodium Chloride (Sodium Chloride Flush Syringe 10 Ml) 10 ml IV BID [facility] Last Admin: 10/22/18 09:24 Dose: 10 ml Documented by: Sodium Chloride (Sodium Chloride Flush Syringe 10 Ml) 10 ml IV PRN PRN PRN Reason: LINE FLUSH Review of Systems Cardiovascular: shortness of breath, no chest pain, no orthopnea, no palpitations, no rapid/irregular heart beat, no edema, no syncope, no lightheadedness Physical Examination Vital Signs Temp Pulse Resp BP Pulse Ox 98.2 F 80 18 157/100 96 10/21/18 11:58 10/21/18 11:58 10/21/18 11:58 10/21/18 11:58 10/21/18 11:58 General appearance: no acute distress HEENT: Positive: PERRL Neck: Positive: neck supple Cardiac: Positive: Reg Rate and Rhythm Lungs: Positive: Decreased Breath Sounds Neuro: Positive: Grossly Intact Abdomen: Positive: Soft Female genitourinary: deferred Skin: Positive: Clear Extremities: Absent: edema Results 10/21/18 12:52 10/21/18 12:52 EKG interpretations - Telemetry EKG Rhythm: Sinus Rhythm Assessment and Plan - Patient Problems (1) Dilated cardiomyopathy Current Visit: Yes Status: Acute Plan to address problem: We'll continue guideline directed optimal treatment of dilated cardiomyopathy and chronic systolic heart failure. Cardiac status is stable for discharge on outpatient medical therapy.
--- NOTE | 2018-10-22 16:56 | Progress Note ---
Assessment and Plan Assessment and plan: - Patient Problems (1) CHF (congestive heart failure) Current Visit: Yes Status: Acute Qualifiers: Heart failure type: systolic Heart failure chronicity: acute on chronic Qualified Code(s): I50.23 - Acute on chronic systolic (congestive) heart failure Plan to address problem: Presumed diastolic Continue management as directed by cardiology with optimized medical management and anticipate possible discharge in a.m. Patient has a known ejection fraction of 20% on last underwent Catheterization about 6 weeks ago with no significant cardiovascular disease. The chest x-ray revealed no interstitial edema or heart failure, and there was no lower extremity edema. EKG sent normal sinus rhythm with her chronic left bundle branch block. Remarkable as the patient if she's ever had a heart disease she said no. I will further discuss her clinical condition with her prior to discharge. She will she is compliant with all goal-directed therapy. (2) COPD with exacerbation Current Visit: Yes Status: Acute Plan to address problem: Continue current therapy with antibiotics and nebulizer treatments. If improved will discharge him and (3) Respiratory failure Current Visit: Yes Status: Acute Qualifiers: Chronicity: acute Respiratory failure complication: hypoxia Qualified Co de(s): J96.01 - Acute respiratory failure with hypoxia Plan to address problem: No clinical evidence of pulmonary embolism noted. Respiratory failure is impro paula. (4) Diabetes Current Visit: Yes Status: Acute Plan to address problem: ADA diet, insulin, accu check, (5) CAD (coronary artery disease) Current Visit: Yes Status: Acute Qualifiers: Associated angina: without angina Plan to address problem: Low cholesterol diet, lipid panel, statin therapy as clinically indicated. (6) DVT prophylaxis Current Visit: Yes Status: Acute Plan to address problem: SCD to BLE while in bed. Prophylactic lovenox Discussed with the patient understood discharge in a.m. History Interval history: Patient seen and examined this morning continues to complain of mild shortness of breath. She does have cough which is wet but nonproductive. Denies any chest pain at this time. Denies any further fever. Hospitalist Physical - Physical exam Narrative exam: VITAL SIGNS: Reviewed. GENERAL: The patient appeared well nourished and normally developed, Vital signs as documented. HEAD: No signs of head trauma. EYES: Pupils are equal. Extraocular motions intact. EARS: Hearing grossly intact. MOUTH: Oropharynx is normal. NECK: No adenopathy, no JVD. CHEST: Chest with clear breath sounds bilaterally. No wheezes, rales, or rh onchi. CARDIAC: Regular rate and rhythm. S1 and S2, without murmurs, gallops, or rubs. VASCULAR: No Edema. Peripheral pulses normal and equal in all extremities. ABDOMEN: Soft, non tender and non distended. No rebound or guarding, and no masses palpated. Bowel Sounds normal. MUSCULOSKELETAL: Good range of motion of all major joints. Extremities without clubbing, cyanosis or edema. NEUROLOGIC EXAM: Alert and oriented x 3 No focal sensory or strength deficits. Speech normal. Follows commands. PSYCHIATRIC: Mood normal. SKIN: No rash or lesions. - Constitutional Vitals: Temp Pulse Resp BP Pulse Ox 98.4 F 112 H 24 149/80 97 10/22/18 04:51 10/22/18 09:31 10/22/18 09:31 10/22/18 09:31 10/22/18 09:31 General appearance: Present: no acute distress Results - Labs CBC & Chem 7: 10/21/18 12:52 10/21/18 12:52 Labs: Laboratory Last Values WBC 8.8 K/mm3 (4.5-11.0) 10/21/18 12:52 RBC 5.47 M/mm3 (3.65-5.03) H 10/21/18 12:52 Hgb 15.0 gm/dl (10.1-14.3) H 10/21/18 12:52 Hct 45.2 % (30.3-42.9) H 10/21/18 12:52 MCV 83 fl (79-97) 10/21/18 12:52 MCH 28 pg (28-32) 10/21/18 12:52 MCHC 33 % (30-34) 10/21/18 12:52 RDW 14.5 % (13.2-15.2) 10/21/18 12:52 Plt Count 283 K/mm3 (140-440) 10/21/18 12:52 PT 13.9 Sec. (12.2-14.9) 10/21/18 12:52 INR 1.01 (0.87-1.13) 10/21/18 12:52 D-Dimer 152.22 ng/mlDDU (0-234) 10/21/18 20:19 Sodium 141 mmol/L (137-145) 10/21/18 12:52 Potassium 4.1 mmol/L (3.6-5.0) 10/21/18 12:52 Chloride 99.9 mmol/L (98-107) 10/21/18 12:52 Carbon Dioxide 29 mmol/L (22-30) 10/21/18 12:52 Anion Gap 16 mmol/L 10/21/18 12:52 BUN 10 mg/dL (7-17) 10/21/18 12:52 Creatinine 0.7 mg/dL (0.7-1.2) 10/21/18 12:52 Estimated GFR > 60 ml/min 10/21/18 12:52 BUN/Creatinine Ratio 14 % 10/21/18 12:52 Glucose 111 mg/dL (65-100) H 10/21/18 12:52 POC Glucose 146 (70-105) H 10/23/18 06:49 Calcium 9.9 mg/dL (8.4-10.2) 10/21/18 12:52 Magnesium 1.90 mg/dL (1.7-2.3) 10/21/18 20:19 Troponin T < 0.010 ng/mL (0.00-0.029) 10/21/18 12:52 NT-Pro-B Natriuret Pep 551.5 pg/mL (0-900) 10/21/18 12:52 TSH 0.443 mlU/mL (0.270-4.200) 10/21/18 12:52 Active Medications - Current Medications Current Medications: Generic Name Dose Route Start Last Admin Trade Name Andrzejq PRN Reason Stop Dose Admin Acetaminophen 650 mg 10/21/18 15:00 10/22/18 09:26 Tylenol PO 650 mg Q4H PRN Administration Pain MILD(1-3)/Fever >100.5/DE SANTIAGO Albuterol 2.5 mg 10/21/18 14:38 Proventil IH Q4HRT PRN Shortness Of Breath Amlodipine Besylate 10 mg 10/21/18 15:00 10/22/18 09:23 Norvasc PO 10 mg QDAY CHRIS Administration Aspirin 81 mg 10/22/18 10:00 10/22/18 09:23 Halfprin Ec PO 81 mg QDAY CHRIS Administration Dextrose 50 ml 10/21/18 15:00 D50w (25gm) Syringe IV PRN PRN Hypoglycemia Enoxaparin Sodium 40 mg 10/21/18 22:00 10/21/18 21:42 Lovenox SUB-Q 40 mg QDAY@2200 CHRIS Administration Furosemide 20 mg 10/21/18 18:00 10/22/18 05:38 Lasix IV 20 mg 0600,1800 CHRIS Administration Hydrocodone Bit/Homatropine Methylb 10 ml 10/21/18 17:07 Hydromet PO Q6H PRN Cough Azithromycin 500 mg/ Sodium 250 mls @ 250 mls/hr 10/22/18 10:00 10/22/18 09:46 Chloride IV 250 mls/hr Q24HR CHRIS Administration Insulin Human Lispro 0 unit 10/21/18 18:00 10/22/18 13:15 Humalog SUB-Q Not Given Q6HR [facility] Protocol Methylprednisolone Sodium Succinate 40 mg 10/21/18 22:00 10/22/18 09:23 Solu-Medrol IV 40 mg Q12HR CHRIS Administration Ondansetron HCl 4 mg 10/21/18 15:00 Zofran IV Q8H PRN Nausea And Vomiting Sodium Chloride 10 ml 10/21/18 22:00 10/22/18 09:24 Sodium Chloride Flush Syringe 10 Ml IV 10 ml BID CHRIS Administration Sodium Chloride 10 ml 10/21/18 14:38 Sodium Chloride Flush Syringe 10 Ml IV PRN PRN LINE FLUSH
[2018-10-22] MEDS: LOVENOX SUB-Q SCH (22:45)
[2018-10-23] MEDS: LASIX IV SCH (05:37)
[2018-10-23] MEDS: HumaLOG SUB-Q SCH ×2 (06:17→13:15)
[2018-10-23] MEDS: SOLU-Medrol IV SCH (10:25)
[2018-10-23] MEDS: NORVASC PO SCH (10:25)
[2018-10-23] MEDS: HALFPRIN EC PO SCH (10:25)
[2018-10-23] MEDS: SODIUM CHLORIDE FLUSH SYRINGE 10 ML IV SCH (10:26)
--- NOTE | 2018-10-23 10:37 | Discharge Summary ---
Providers - Providers Date of Admission: 10/21/18 14:38 Attending physician: LICO SALAZAR MD 10/21/18 12:34 Consult to Physician [CONS] Urgent Comment: DR TOLEDO NOTIFIED Consulting Provider: MOLLY TOLEDO Physician Instructions: Reason For Exam: chf Primary care physician: ISAIAH COTE Hospitalization Reason for admission: shortness of breath Condition: Stable Hospital course: 68 YO Female with HTN, DM, Obesity, Systolic CHF(EF 20%), COPD presents to ED for evaluation. Pt states that she has experienced shortness of breath over the past 3 days with progressively worsening symptoms over the same time frame. Pt acknowledges shortness of breath, increased productive cough of whitish sputum, dypsnea on exertion, decreased exercise tolerance, leg edema, and 45 lbs weight gain over the past 2 months, Orthopnea/PND. PT denies fever, chills, chest pain, palpitation, nasal congestion, or sore throat, NVD, Dizziness, syncope or loss of consciousness. EMS notified, and upon arrival the patient was found to be in distress and transported to [facility]. Pt seen and evaluated in ED and found to have symptoms consistent with COPD Exacebation complicated by Acute Respiratory Failure, as well as CHF Decompensation. Cardiology consulted in ED. Pt admitted to telemetry and initiated on CHF protocol. Pt treated with supplemental oxygen with improvement in symptoms. Prior admission on 03/28/18 reviewed. All listed medication reconciled at admission. * Patient on admission was sent by cardiology who felt that that may be alternative diagnosis for her condition rub or exacerbation of CHF. On further discussion with the patient appears that she does have acute bronchitis exacerbating underlying COPD. She was treated with nebulizer and a ntibiotics. * Patient appears to have poor knowledge of her medical condition including an ejection fraction of 20% on a recent cardiac catheterization 6 weeks ago with no significant evidence of carotid vascular disease but with known left bundle branch block which is chronic. We did have extensive discussion with the patient about this and about compliance with medication which she does not appear that she's been taken any of her Alex inhibitors as prescribed during the procedure. RECOMMENDED during the procedure. She verbalizes understanding of this and prescribed counseling about side effects was also provided to the patient. - Patient Problems acute bronchitis Dilated cardiomyopathy COPD with exacerbation Respiratory failure diabetes CAD (coronary artery disease) Disposition: TO HOME OR SELFCARE Time spent for discharge: 35 mins Core Measure Documentation - Palliative Care Palliative Care/ Comfort Measures: Not Applicable - Core Measures Any of the following diagnoses?: none Exam - Physical Exam Narrative exam: VITAL SIGNS: Reviewed. GENERAL: The patient appeared well nourished and normally developed, Vital signs as documented. HEAD: No signs of head trauma. EYES: Pupils are equal. Extraocular motions intact. EARS: Hearing grossly intact. MOUTH: Oropharynx is normal. NECK: No adenopathy, no JVD. CHEST: Chest with clear breath sounds bilaterally. No wheezes, rales, or rhonchi. CARDIAC: Regular rate and rhythm. S1 and S2, without murmurs, gallops, or rubs. VASCULAR: No Edema. Peripheral pulses normal and equal in all extremities. ABDOMEN: Soft, non tender and non distended. No rebound or guarding, and no masses palpated. Bowel Sounds normal. MUSCULOSKELETAL: Good range of motion of all major joints. Extremities without clubbing, cyanosis or edema. NEUROLOGIC EXAM: Alert and oriented x 3 No focal sensory or strength deficits. Speech normal. Follows commands. PSYCHIATRIC: Mood normal. SKIN: No rash or lesions. - Constitutional Vitals: Temp Pulse Resp BP Pulse Ox 98.2 F 84 18 144/76 96 10/23/18 09:23 10/23/18 09:24 10/23/18 09:24 10/23/18 09:24 10/23/18 09:24 Plan Activity: advance as tolerated, fall precautions Diet: low fat, low salt Special Instructions: record daily BP diary, record blood sugar diary Follow up with: ISAIAH COTE MD [Primary Care Provider] - 3-5 Days MOLLY TOLEDO MD [Staff Physician] - 7 Days Prescriptions: Amoxicillin/Potassium Clav [Augmentin 500-125 Tablet] 1 each PO BID 5 Days tablet Carvedilol [Coreg] 6.25 mg PO BID #60 tablet HYDROcodone/HOMATROP 5-1.5 [HYDROcodone-Homatropin 5-1.5 mg per 5 ML] 10 ml PO Q6H PRN 10 Days udc PRN Reason: Cough Furosemide [Lasix TAB] 40 mg PO QDAY #30 tablet Prednisone [predniSONE 5 mg (6-Day Pack, 21 Tabs)] 5 mg PO .TAPER #1 tab.ds.pk Lisinopril [Prinivil] 5 mg PO DAILY #30 tablet ALBUTEROL NEB's [Proventil 0.083% NEBS] 2.5 mg IH Q4HRT PRN #30 nebu PRN Reason: Shortness Of Breath
[2018-10-23] MEDS: ZITHROMAX 500 MG in NACL 0.9% 250ML 250 ML IV SCH (14:05)
[2018-10-23 16:20] VITALS: BP 144/70
--- NOTE | 2018-10-23 17:27 | Progress Note ---
Assessment and Plan - Patient Problems (1) Dilated cardiomyopathy Current Visit: Yes Status: Acute Plan to address problem: We'll continue guideline directed optimal treatment of dilated cardiomyopathy and chronic systolic heart failure. Cardiac status is stable for discharge on outpatient medical therapy. Subjective Date of service: 10/23/18 Interval history: Patient looks and feels better, no cardiac complaints. Shortness of breath has resolved. Objective Vital Signs Temp Pulse Resp BP Pulse Ox 10/23/18 16:17 97.6 F 87 18 144/70 97 10/23/18 11:54 97.7 F 76 18 128/79 97 10/23/18 10:00 96 10/23/18 09:24 84 18 144/76 96 10/23/18 09:23 98.2 F 10/23/18 04:20 98.0 F 80 18 137/70 97 10/23/18 03:00 93 H 10/23/18 00:32 98.3 F 79 18 129/77 97 10/22/18 20:07 98.4 F 93 H 18 132/69 97 10/22/18 19:25 20 97 10/22/18 19:00 95 H 10/22/18 18:31 97.6 F 95 H 20 140/72 93 - Physical Examination General: No Apparent Distress HEENT: Positive: PERRL Neck: Positive: neck supple Cardiac: Positive: Reg Rate and Rhythm Lungs: Positive: Decreased Breath Sounds Neuro: Positive: Grossly Intact Abdomen: Positive: Soft Skin: Positive: Clear Extremities: Absent: edema
== END 2018-10-23 18:24 | disposition home or self-care (01) | DRG 291 ==
LOC: ED 11:47 → 4A 14:38
PROVIDERS: ADMIT Internal Medicine; ATTEND Internal Medicine
DX: I11.0 Hypertensive heart disease with heart failure (principal); J96.01 Acute respiratory failure with hypoxia; J44.0 Chronic obstructive pulmonary disease with (acute) lower respiratory infection; J44.1 Chronic obstructive pulmonary disease with (acute) exacerbation; I50.23 Acute on chronic systolic (congestive) heart failure; I42.0 Dilated cardiomyopathy; E11.9 Type 2 diabetes mellitus without complications; I25.10 Atherosclerotic heart disease of native coronary artery without angina pectoris; G43.909 Migraine, unspecified, not intractable, without status migrainosus; E66.9 Obesity, unspecified; Z79.84 Long term (current) use of oral hypoglycemic drugs; Z79.899 Other long term (current) drug therapy; Z79.82 Long term (current) use of aspirin; Z68.32 Body mass index [BMI] 32.0-32.9, adult; Z83.3 Family history of diabetes mellitus; Z82.49 Family history of ischemic heart disease and other diseases of the circulatory system
CPT/HCPCS: 36415; 71046; 71275; 80048; 82962; 83735; 83880; 84443; 84484; 85027; 85379; 85610; 90686; 93005; 93010; 94760; 96372; 96374; 96375; G0378; J0456; J1650; J1815; J1940; J2920; J2930; J7050; Q9967

== ENCOUNTER 2019-03-14 06:12 | Emergency (ER) | payer MEDICARE ==
[2019-03-14] MEDS ORDERED: PROVENTIL IH ONE (06:30)
[2019-03-14] MEDS ORDERED: ATROVENT IH ONE (06:30)
[2019-03-14] MEDS: ATROVENT IH ONE (06:42)
[2019-03-14] MEDS: PROVENTIL IH ONE (06:42)
[2019-03-14] MEDS: DELTASONE PO ONE (06:45)
--- NOTE | 2019-03-14 07:01 | XRay Report ---
CHEST 1 VIEW INDICATION: cough, wheezing. COMPARISON: 10/21/2018. FINDINGS: Support devices: Pacemaker unchanged. Heart: Stable cardiomegaly. The aorta remains tortuous and ectatic. Lungs/Pleura: No acute air space or interstitial disease. Additional findings: None. IMPRESSION: Stable cardiomegaly. Signer Name: Calixto Marmolejo MD Signed: 03/14/2019 6:56 AM Workstation Name: [id number]
[2019-03-14 07:14] VITALS: BP 143/83
--- NOTE | 2019-03-14 07:25 | Emergency Department Report ---
ED Shortness of Breath HPI - General Chief Complaint: Dyspnea/Respdistress Stated Complaint: FABIÁN Time Seen by Provider: 03/14/19 06:35 Source: patient, family Mode of arrival: Ambulatory Limitations: No Limitations - History of Present Illness Initial Comments: 69 yo F with hx of COPD presents to ED with wheezing since this morning. Pt states she has been having exacerbations over the last 3 weeks. Reports nonproductive cough and states wheezing is triggered by the coughing. Pt states she has been on a course of antibiotics also since this started 3 weeks ago. Denies fever. Recently had pacemaker placed and reports chest wall pain since placement. MD Complaint: shortness of breath, cough -: week(s) (3) Severity: moderate Consistency: intermittent Improves With: bronchodilators Worsens With: coughing Known History Of: COPD - Related Data Home Oxygen Therapy: No Home Medications Medication Instructions Recorded Confirmed Last Taken Aspirin [Aspirin EC] 81 mg PO QDAY 09/10/18 10/21/18 10/20/18 metFORMIN [Glucophage] 500 mg PO QDAY 10/21/18 10/21/18 10/20/18 Previous Rx's Medication Instructions Recorded Last Taken Type amLODIPine [Norvasc] 10 mg PO QDAY #30 tablet 04/01/18 10/20/18 Rx ALBUTEROL NEB's [Proventil 0.083% 2.5 mg IH Q4HRT PRN #30 nebu 10/23/18 Unknown Rx NEBS] Amoxicillin/Potassium Clav 1 each PO BID 5 Days tablet 10/23/18 Unknown Rx [Augmentin 500-125 Tablet] Carvedilol [Coreg] 6.25 mg PO BID #60 tablet 10/23/18 Unknown Rx Furosemide [Lasix TAB] 40 mg PO QDAY #30 tablet 10/23/18 Unknown Rx HYDROcodone/HOMATROP 5-1.5 10 ml PO Q6H PRN 10 Days udc 10/23/18 Unknown Rx [HYDROcodone-Homatropin 5-1.5 mg per 5 ML] Lisinopril [Prinivil] 5 mg PO DAILY #30 tablet 10/23/18 Unknown Rx Prednisone [predniSONE 5 mg (6-Day 5 mg PO .TAPER #1 tab.ds.pk 10/23/18 Unknown Rx Pack, 21 Tabs)] Albuterol Sulfate [Proventil Hfa] 2 puff IH Q4HR PRN #1 hfa.aer.ad 03/14/19 Unknown Rx Benzonatate [Tessalon Perles] 100 mg PO Q8HR PRN #20 capsule 03/14/19 Unknown Rx predniSONE [Deltasone] 50 mg PO QDAY #5 tab 03/14/19 Unknown Rx Allergies Allergy/AdvReac Type Severity Reaction Status Date / Time No Known Allergies Allergy Verified 09/16/18 10:05 ED Review of Systems ROS: Stated complaint: FABIÁN Other details as noted in HPI Comment: All other systems reviewed and negative Constitutional: denies: chills, fever Respiratory: cough, wheezing Cardiovascular: denies: chest pain ED Past Medical Hx - Past Medical History Previous Medical History?: Yes Hx Hypertension: Yes Hx CVA: No Hx Heart Attack/AMI: No Hx Congestive Heart Failure: Yes Hx Diabetes: Yes Hx Deep Vein Thrombosis: No Hx Pulmonary Embolism: No Hx GERD: No Hx Liver Disease: No Hx Renal Disease: No Hx Sickle Cell Disease: No Hx Arthritis: No Hx Headaches / Migraines: Yes (for the last 3 days) Hx Seizures: No Hx Kidney Stones: No Hx Psychiatric Treatment: No Hx Asthma: No Hx COPD: No Hx Tuberculosis: No Hx Dementia: No Hx HIV: No - Surgical History Past Surgical History?: Yes Hx Coronary Stent: No Hx Open Heart Surgery: No Hx Pacemaker: No Hx Internal Defibrillator: No Hx Cholecystectomy: No Hx Appendectomy: No Hx Breast Surgery: No Additional Surgical History: Laparoscopic herniorrhaphy, pacemaker - Social History Smoking Status: Former Smoker Substance Use Type: None - Medications Home Medications: Home Medications Medication Instructions Recorded Confirmed Last Taken Type amLODIPine [Norvasc] 10 mg PO QDAY #30 tablet 04/01/18 10/21/18 10/20/18 Rx Aspirin [Aspirin EC] 81 mg PO QDAY 09/10/18 10/21/18 10/20/18 History metFORMIN [Glucophage] 500 mg PO QDAY 10/21/18 10/21/18 10/20/18 History ALBUTEROL NEB's [Proventil 0.083% 2.5 mg IH Q4HRT PRN #30 nebu 10/23/18 Unknown Rx NEBS] Amoxicillin/Potassium Clav 1 each PO BID 5 Days tablet 10/23/18 Unknown Rx [Augmentin 500-125 Tablet] Carvedilol [Coreg] 6.25 mg PO BID #60 tablet 10/23/18 Unknown Rx Furosemide [Lasix TAB] 40 mg PO QDAY #30 tablet 10/23/18 Unknown Rx HYDROcodone/HOMATROP 5-1.5 10 ml PO Q6H PRN 10 Days udc 10/23/18 Unknown Rx [HYDROcodone-Homatropin 5-1.5 mg per 5 ML] Lisinopril [Prinivil] 5 mg PO DAILY #30 tablet 10/23/18 Unknown Rx Prednisone [predniSONE 5 mg (6-Day 5 mg PO .TAPER #1 tab.ds.pk 10/23/18 Unknown Rx Pack, 21 Tabs)] Albuterol Sulfate [Proventil Hfa] 2 puff IH Q4HR PRN #1 hfa.aer.ad 03/14/19 Unknown Rx Benzonatate [Tessalon Perles] 100 mg PO Q8HR PRN #20 capsule 03/14/19 Unknown Rx predniSONE [Deltasone] 50 mg PO QDAY #5 tab 03/14/19 Unknown Rx ED Physical Exam - General Limitations: No Limitations General appearance: alert, in no apparent distress - Head Head exam: Present: atraumatic, normocephalic - Eye Eye exam: Present: normal appearance, PERRL, EOMI - ENT ENT exam: Present: mucous membranes moist - Neck Neck exam: Present: normal inspection - Respiratory Respiratory exam: Present: wheezes - Cardiovascular Cardiovascular Exam: Present: regular rate, normal rhythm - GI/Abdominal GI/Abdominal exam: Absent: distended - Extremities Exam Extremities exam: Present: normal inspection - Neurological Exam Neurological exam: Present: alert, oriented X3 - Psychiatric Psychiatric exam: Present: normal affect, normal mood - Skin Skin exam: Present: warm, dry, intact, normal color ED Course Vital Signs 03/14/19 03/14/19 03/14/19 06:40 06:44 07:13 Temperature 97.8 F Pulse Rate 70 86 Pulse Rate [ 85 Anterior] Respiratory 24 18 Rate Respiratory 24 Rate [Anterior] Blood Pressure 109/87 143/83 [Right] O2 Sat by Pulse 98 99 Oximetry 03/14/19 08:25 Temperature Pulse Rate 88 Pulse Rate [ Anterior] Respiratory 21 Rate Respiratory Rate [Anterior] Blood Pressure [Right] O2 Sat by Pulse 95 Oximetry ED Medical Decision Making - Radiology Data Radiology results: report reviewed, image reviewed - Medical Decision Making 69 yo F w/ COPD exacerbation. CXR unremarkable. Pt given albuterol/ atrovent nebs, prednisone. Wheezing resolved. Pt feeling much better at this time. O2 sats normal, no resp distress. Will discharge at this time. Follow-up info given for cnc operator. Return precautions given. - Differential Diagnosis COPD, CHF, pneumonia Critical care attestation.: If time is entered above; I have spent that time in minutes in the direct care of this critically ill patient, excluding procedure time. ED Disposition Clinical Impression: COPD with exacerbation Disposition: TO HOME OR SELFCARE Is pt being admited?: No Condition: Stable Instructions: Chronic Obstructive Pulmonary Disease (ED) Prescriptions: predniSONE [Deltasone] 50 mg PO QDAY #5 tab Albuterol Sulfate [Proventil Hfa] 2 puff IH Q4HR PRN #1 hfa.aer.ad PRN Reason: Wheezing Benzonatate [Tessalon Perles] 100 mg PO Q8HR PRN #20 capsule PRN Reason: Cough Referrals: PRIMARY CAREMD [Referring] - 3-5 Days BRANDON SWENSON MD [Staff Physician] - 3-5 Days Time of Disposition: 08:12
== END 2019-03-14 08:40 | disposition home or self-care (01) ==
LOC: ED 06:12
DX: J44.1 Chronic obstructive pulmonary disease with (acute) exacerbation (principal); I11.0 Hypertensive heart disease with heart failure; I50.9 Heart failure, unspecified; E11.9 Type 2 diabetes mellitus without complications; G43.909 Migraine, unspecified, not intractable, without status migrainosus; Z98.890 Other specified postprocedural states; Z95.0 Presence of cardiac pacemaker; Z87.891 Personal history of nicotine dependence; Z79.899 Other long term (current) drug therapy; Z79.82 Long term (current) use of aspirin
CPT/HCPCS: 71045; 94640; 99283; J7512; 94644

== ENCOUNTER 2019-08-23 14:48 | Emergency (ER) | payer MEDICARE ==
--- NOTE | 2019-08-23 16:47 | Event Note ---
ED Screening Note Date of service: 08/23/19 Time: 16:43 ED Screening Note: Stomach pains times 1 month. Has seen her PCP within last 2 weeks. No n/v or diarrhea. Pain is dull. Thinks she has had a colonoscopy with 5 years. No dysuria. No weight loss. Was seen at [facility] last week and had a ct scan. This initial assessment/diagnostic orders/clinical plan/treatment(s) is/are subject to change based on patients health status, clinical progression and re- assessment by fellow clinical providers in the ED. Further treatment and workup at subsequent clinical providers discretion. Patient/guardian urged not to elope from the ED as their condition may be serious if not clinically assessed and managed. Initial orders include:
[2019-08-23 18:54] LABS: Basophils # (Auto) 0.1 K/mm3 (0.0-0.1); Basophils % (Auto) 1.4 % (0.0-1.8); Eosinophils # (Auto) 0.7 K/mm3 (0.0-0.4); Hematocrit 47.7 % (30.3-42.9); Hemoglobin 15.5 gm/dl (10.1-14.3); Lymphocytes # (Auto) 2.3 K/mm3 (1.2-5.4); Lymphocytes % (Auto) 22.2 % (13.4-35.0); Mean Corpuscular HGB Conc 32 % (30-34); Mean Corpuscular Volume 84 fl (79-97); Monocytes # (Auto) 0.9 K/mm3 (0.0-0.8); Monocytes % (Auto) 8.6 % (0.0-7.3); Platelet Count 233 K/mm3 (140-440); Red Cell Distribution Width 14.2 % (13.2-15.2)
[2019-08-23 20:01] LABS: Alanine Aminotransferase 13 units/L (7-56); Albumin 4.7 g/dL (3.9-5); BUN/Creatinine Ratio 20; Blood Urea Nitrogen 14 mg/dL (7-17); Calcium 10.3 mg/dL (8.4-10.2); Hemolysis Index 27
[2019-08-24 00:24] VITALS: BP 157/96
== END 2019-08-24 03:32 | disposition left against medical advice (07) ==
LOC: ED 14:48
DX: R10.9 Unspecified abdominal pain (principal); Z53.21 Procedure and treatment not carried out due to patient leaving prior to being seen by health care provider
CPT/HCPCS: 36415; 80053; 85025

== ENCOUNTER 2019-08-26 10:18 | Emergency (ER) | payer MEDICARE ==
--- NOTE | 2019-08-26 12:13 | Emergency Department Report ---
Chief Complaint: Abdominal Pain Stated Complaint: STOMACH PAIN - HPI History of Present Illness: 69 yo AA F p[resents with 1 month of upper abdominal pain. Nausea without vomiting. No fever, diarrhea, constipation. Came here on 08/23 but LWBS or eloped. She complains of having previous left sided CP yesterday that has since resolved. No SOB. Hx of DM, CHF, CAD, Dilated cardiomyopathy. Taking home medications, otherwise no other medications/treatments. PCP: Previously [facility] Review of Systems: +Abd pain, Nausea without vomiting. +CP yesteday that has resolved -Fever, diarrhea, constipation, SOB - Exam Vital Signs: Vital Signs 08/26/19 10:22 Temperature 97.7 F Pulse Rate 85 Respiratory 18 Rate Blood Pressure 177/77 O2 Sat by Pulse 94 Oximetry Physical Exam: +Upper abd TTP. No guarding No acute distress. Ambulated throughout Triage without instability Heart and lungs CTA. MSE screening note: Focused history and physical exam performed. Due to findings the following was ordered: CBC, CMP, Lipase, Troponin EKG To main side secondary to HTN, Comorbidities. Patient discussed with doctor:: TIARA RICHARDSON ED Disposition for MSE Condition: Stable Instructions: Abdominal Pain (ED)
[2019-08-26 12:57] LABS: Basophils # (Auto) 0.1 K/mm3 (0.0-0.1); Basophils % (Auto) 1.5 % (0.0-1.8); Eosinophils # (Auto) 0.6 K/mm3 (0.0-0.4); Eosinophils % (Auto) 6.1 % (0.0-4.3); Hematocrit 45.3 % (30.3-42.9); Hemoglobin 14.5 gm/dl (10.1-14.3); Lymphocytes # (Auto) 2.1 K/mm3 (1.2-5.4); Lymphocytes % (Auto) 23.6 % (13.4-35.0); Mean Corpuscular HGB Conc 32 % (30-34); Mean Corpuscular Volume 84 fl (79-97); Monocytes # (Auto) 0.8 K/mm3 (0.0-0.8); Monocytes % (Auto) 8.6 % (0.0-7.3); Platelet Count 210 K/mm3 (140-440); Red Blood Count 5.42 M/mm3 (3.65-5.03); Red Cell Distribution Width 14.2 % (13.2-15.2)
[2019-08-26 13:21] LABS: Alanine Aminotransferase 11 units/L (7-56); Albumin 4.2 g/dL (3.9-5); BUN/Creatinine Ratio 13; Blood Urea Nitrogen 8 mg/dL (7-17); Calcium 9.9 mg/dL (8.4-10.2); Hemolysis Index 10
[2019-08-26] MEDS ORDERED: FAMOTIDINE 20 MG TAB PO ONE (14:33)
--- NOTE | 2019-08-26 14:50 | Emergency Department Report ---
ED Abdominal Pain HPI - General Chief Complaint: Abdominal Pain Stated Complaint: STOMACH PAIN Time Seen by Provider: 08/26/19 13:42 Source: patient Mode of arrival: Ambulatory Limitations: No Limitations - History of Present Illness Initial Comments: This is a 69-year-old female who presents to the ED complaining of upper abdominal pain for the past week. Patient states pain is localized upper abdominal region with no radiation elsewhere. Patient assisted pain is crampy aching in nature and intermittent throughout the day. Patient states she is able to eat and drink with no problems. Patient denies dysuria, fever, chills, nausea vomiting or diarrhea, shortness of breath MD Complaint: abdominal pain - Related Data Home Medications Medication Instructions Recorded Confirmed Last Taken Aspirin [Aspirin EC] 81 mg PO QDAY 09/10/18 10/21/18 10/20/18 metFORMIN [Glucophage] 500 mg PO QDAY 10/21/18 10/21/18 10/20/18 Previous Rx's Medication Instructions Recorded Last Taken Type amLODIPine 10 mg PO QDAY #30 tablet 04/01/18 10/20/18 Rx ALBUTEROL NEB's [Proventil 0.083% 2.5 mg IH Q4HRT PRN #30 nebu 10/23/18 Unknown Rx NEBS] Amoxicillin/Potassium Clav 1 each PO BID 5 Days tablet 10/23/18 Unknown Rx [Augmentin 500-125 Tablet] Furosemide [Lasix TAB] 40 mg PO QDAY #30 tablet 10/23/18 Unknown Rx HYDROcodone/HOMATROP 5-1.5 10 ml PO Q6H PRN 10 Days udc 10/23/18 Unknown Rx [HYDROcodone-Homatropin 5-1.5 mg per 5 ML] Prednisone [predniSONE 5 mg (6-Day 5 mg PO .TAPER #1 tab.ds.pk 10/23/18 Unknown Rx Pack, 21 Tabs)] carvediloL [Coreg] 6.25 mg PO BID #60 tablet 10/23/18 Unknown Rx lisinopriL [Prinivil] 5 mg PO DAILY #30 tablet 10/23/18 Unknown Rx Albuterol Sulfate [Proventil Hfa] 2 puff IH Q4HR PRN #1 hfa.aer.ad 03/14/19 Unknown Rx Benzonatate [Tessalon Perles] 100 mg PO Q8HR PRN #20 capsule 03/14/19 Unknown Rx predniSONE [Deltasone] 50 mg PO QDAY #5 tab 03/14/19 Unknown Rx Dicyclomine [Bentyl] 10 mg PO TID #30 capsule 08/26/19 Unknown Rx Famotidine [Pepcid] 20 mg PO BID #40 tablet 08/26/19 Unknown Rx Allergies Allergy/AdvReac Type Severity Reaction Status Date / Time lisinopril Allergy Unknown Verified 08/26/19 10:19 ED Review of Systems ROS: Stated complaint: STOMACH PAIN Other details as noted in HPI Comment: All other systems reviewed and negative ED Past Medical Hx - Past Medical History Hx Hypertension: Yes Hx CVA: No Hx Heart Attack/AMI: No Hx Congestive Heart Failure: Yes Hx Diabetes: Yes Hx Deep Vein Thrombosis: No Hx Pulmonary Embolism: No Hx GERD: No Hx Liver Disease: No Hx Renal Disease: No Hx Sickle Cell Disease: No Hx Arthritis: No Hx Headaches / Migraines: Yes (for the last 3 days) Hx Seizures: No Hx Kidney Stones: No Hx Psychiatric Treatment: No Hx Asthma: No Hx COPD: No Hx Tuberculosis: No Hx Dementia: No Hx HIV: No Additional medical history: Cardiac pacemaker - Surgical History Hx Coronary Stent: No Hx Open Heart Surgery: No Hx Pacemaker: No Hx Internal Defibrillator: No Hx Cholecystectomy: No Hx Appendectomy: No Hx Breast Surgery: No Additional Surgical History: Laparoscopic herniorrhaphy, pacemaker - Social History Smoking Status: Never Smoker Substance Use Type: None - Medications Home Medications: Home Medications Medication Instructions Recorded Confirmed Last Taken Type amLODIPine 10 mg PO QDAY #30 tablet 04/01/18 10/21/18 10/20/18 Rx Aspirin [Aspirin EC] 81 mg PO QDAY 09/10/18 10/21/18 10/20/18 History metFORMIN [Glucophage] 500 mg PO QDAY 10/21/18 10/21/18 10/20/18 History ALBUTEROL NEB's [Proventil 0.083% 2.5 mg IH Q4HRT PRN #30 nebu 10/23/18 Unknown Rx NEBS] Amoxicillin/Potassium Clav 1 each PO BID 5 Days tablet 10/23/18 Unknown Rx [Augmentin 500-125 Tablet] Furosemide [Lasix TAB] 40 mg PO QDAY #30 tablet 10/23/18 Unknown Rx HYDROcodone/HOMATROP 5-1.5 10 ml PO Q6H PRN 10 Days udc 10/23/18 Unknown Rx [HYDROcodone-Homatropin 5-1.5 mg per 5 ML] Prednisone [predniSONE 5 mg (6-Day 5 mg PO .TAPER #1 tab.ds.pk 10/23/18 Unknown Rx Pack, 21 Tabs)] carvediloL [Coreg] 6.25 mg PO BID #60 tablet 10/23/18 Unknown Rx lisinopriL [Prinivil] 5 mg PO DAILY #30 tablet 10/23/18 Unknown Rx Albuterol Sulfate [Proventil Hfa] 2 puff IH Q4HR PRN #1 hfa.aer.ad 03/14/19 Unknown Rx Benzonatate [Tessalon Perles] 100 mg PO Q8HR PRN #20 capsule 03/14/19 Unknown Rx predniSONE [Deltasone] 50 mg PO QDAY #5 tab 03/14/19 Unknown Rx Dicyclomine [Bentyl] 10 mg PO TID #30 capsule 08/26/19 Unknown Rx Famotidine [Pepcid] 20 mg PO BID #40 tablet 08/26/19 Unknown Rx ED Physical Exam - General Limitations: No Limitations General appearance: alert, in no apparent distress - Head Head exam: Present: atraumatic, normocephalic - Eye Eye exam: Present: normal appearance - ENT ENT exam: Present: mucous membranes moist - Neck Neck exam: Present: normal inspection - Respiratory Respiratory exam: Present: normal lung sounds bilaterally. Absent: respiratory distress - Cardiovascular Cardiovascular Exam: Present: regular rate, normal rhythm. Absent: systolic murmur, diastolic murmur, rubs, gallop - GI/Abdominal GI/Abdominal exam: Present: soft, normal bowel sounds - Extremities Exam Extremities exam: Present: normal inspection - Back Exam Back exam: Present: normal inspection - Neurological Exam Neurological exam: Present: alert, oriented X3 - Psychiatric Psychiatric exam: Present: normal affect, normal mood - Skin Skin exam: Present: warm, dry, intact, normal color. Absent: rash ED Course Vital Signs 08/26/19 10:22 Temperature 97.7 F Pulse Rate 85 Respiratory 18 Rate Blood Pressure 177/77 O2 Sat by Pulse 94 Oximetry ED Medical Decision Making - Lab Data Result diagrams: 08/26/19 12:33 08/26/19 12:33 Laboratory Last Values WBC 9.0 K/mm3 (4.5-11.0) 08/26/19 12:33 RBC 5.42 M/mm3 (3.65-5.03) H 08/26/19 12:33 Hgb 14.5 gm/dl (10.1-14.3) H 08/26/19 12:33 Hct 45.3 % (30.3-42.9) H 08/26/19 12:33 MCV 84 fl (79-97) 08/26/19 12:33 MCH 27 pg (28-32) L 08/26/19 12:33 MCHC 32 % (30-34) 08/26/19 12:33 RDW 14.2 % (13.2-15.2) 08/26/19 12:33 Plt Count 210 K/mm3 (140-440) 08/26/19 12:33 Lymph % (Auto) 23.6 % (13.4-35.0) 08/26/19 12:33 [place] % (Auto) 8.6 % (0.0-7.3) H 08/26/19 12:33 Eos % (Auto) 6.1 % (0.0-4.3) H 08/26/19 12:33 Baso % (Auto) 1.5 % (0.0-1.8) 08/26/19 12:33 Lymph # 2.1 K/mm3 (1.2-5.4) 08/26/19 12:33 [place] # 0.8 K/mm3 (0.0-0.8) 08/26/19 12:33 Eos # 0.6 K/mm3 (0.0-0.4) H 08/26/19 12:33 Baso # 0.1 K/mm3 (0.0-0.1) 08/26/19 12:33 Seg Neutrophils % 60.2 % (40.0-70.0) 08/26/19 12:33 Seg Neutrophils # 5.4 K/mm3 (1.8-7.7) 08/26/19 12:33 Sodium 143 mmol/L (137-145) 08/26/19 12:33 Potassium 4.0 mmol/L (3.6-5.0) 08/26/19 12:33 Chloride 103.8 mmol/L (98-107) 08/26/19 12:33 Carbon Dioxide 24 mmol/L (22-30) 08/26/19 12:33 Anion Gap 19 mmol/L 08/26/19 12:33 BUN 8 mg/dL (7-17) 08/26/19 12:33 Creatinine 0.6 mg/dL (0.7-1.2) L 08/26/19 12:33 Estimated GFR > 60 ml/min 08/26/19 12:33 BUN/Creatinine Ratio 13 % 08/26/19 12:33 Glucose 122 mg/dL (65-100) H 08/26/19 12:33 Calcium 9.9 mg/dL (8.4-10.2) 08/26/19 12:33 Total Bilirubin 0.40 mg/dL (0.1-1.2) 08/26/19 12:33 AST 15 units/L (5-40) 08/26/19 12:33 ALT 11 units/L (7-56) 08/26/19 12:33 Alkaline Phosphatase 96 units/L (35-129) 08/26/19 12:33 Troponin T < 0.010 ng/mL (0.00-0.029) 08/26/19 12:33 Total Protein 8.4 g/dL (6.3-8.2) H 08/26/19 12:33 Albumin 4.2 g/dL (3.9-5) 08/26/19 12:33 Albumin/Globulin Ratio 1.0 % 08/26/19 12:33 Lipase 37 units/L (13-60) 08/26/19 12:33 Critical care attestation.: If time is entered above; I have spent that time in minutes in the direct care of this critically ill patient, excluding procedure time. ED Disposition Clinical Impression: Gastritis Disposition: DC-01 TO HOME OR SELFCARE Is pt being admited?: No Does the pt Need Aspirin: No Condition: Stable Instructions: Abdominal Pain (ED) Prescriptions: Dicyclomine [Bentyl] 10 mg PO TID #30 capsule Famotidine [Pepcid] 20 mg PO BID #40 tablet Referrals: PRIMARY CARE, [Primary Care Provider] - 3-5 Days [facility] [Provider Group] - 3-5 Days [facility] [Provider Group] - 3-5 Days Forms: Accompanied Note, Work/School Release Form(ED) Time of Disposition: 15:15
[2019-08-26 15:28] VITALS: BP 179/94
[2019-08-26] MEDS ORDERED: DICYCLOMINE 10 MG/5 ML ORAL LIQD PO ONE (15:30)
== END 2019-08-26 15:28 | disposition home or self-care (01) ==
LOC: ED 10:18
DX: K29.70 Gastritis, unspecified, without bleeding (principal); I11.0 Hypertensive heart disease with heart failure; I50.9 Heart failure, unspecified; E11.9 Type 2 diabetes mellitus without complications; Z95.0 Presence of cardiac pacemaker; Z79.899 Other long term (current) drug therapy
CPT/HCPCS: 36415; 80053; 83690; 84484; 85025; 93005; 93010

== ENCOUNTER 2019-08-31 17:20 | Emergency (ER) | payer MEDICARE ==
--- NOTE | 2019-08-31 20:03 | Emergency Department Report ---
Chief Complaint: Abdominal Pain Stated Complaint: STOMACH PAIN Time Seen by Provider: 08/31/19 19:54 - HPI History of Present Illness: 69 y/o female c/o abdominal pain for weeks. Patient has been seen 08/23/19 and 08/26/19. Patient was also seen at [facility] for the same. Patient has not followed up with her PCO or gastroenterology. Patient reports pain is dull. - Exam Physical Exam: axo times 3 NAD non toxic abdomen soft non tender ambulatory without difficulties. MSE screening note: Focused history and physical exam performed. Due to findings the following was ordered: 69 y/o female c/o abdominal pain for weeks. Patient has been seen 08/23/19 and 08/26/19. Patient was also seen at [facility] for the same. Patient has not followed up with her PCO or gastroenterology. Patient reports pain is dull. Follow up with your PCP and GI specialist. ED Disposition for MSE Clinical Impression: Chronic abdominal pain Disposition: Z MED SCREENING EXAM-LEFT Is pt being admited?: No Does the pt Need Aspirin: No Condition: Stable Instructions: Abdominal Pain (ED) Referrals: [facility] [Provider Group] - 3-5 Days
== END 2019-08-31 20:08 | disposition left against medical advice (07) ==
LOC: ED 17:20
DX: G89.29 Other chronic pain (principal); R10.9 Unspecified abdominal pain; Z88.8 Allergy status to other drugs, medicaments and biological substances
CPT/HCPCS: 99281